=== PATIENT | female | born 2000 ===

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

== ENCOUNTER 2023-01-04 09:07 | Emergency (ER) | payer MEDICAID, SELFPAY ==
[2023-01-04 09:26] VITALS: BP 109/80; PULSE 78; RESP 14; TEMP 37.1; O2SAT 99; BMI 24.2
[2023-01-04] MEDS: methylPREDNISolone Sod Succ 125 MG/2 ML VIAL IVPUSH (10:41)
[2023-01-04] MEDS: diphenhydrAMINE HCL 50 MG/ML VIAL IVPUSH (10:41)
[2023-01-04] MEDS: Famotidine/PF 20 MG/2 ML VIAL IVPUSH (10:41)
--- NOTE | 2023-01-04 11:21 | ED_ITS ---
HPI - General Adult General Chief complaint: Skin/Abscess/Foreign Body Stated complaint: hives Time Seen by Provider: 01/04/23 09:51 Source: patient and RN notes reviewed Mode of arrival: ambulatory Limitations: no limitations History of Present Illness HPI narrative: This is a [age]-female presenting today with complaints of itchy rash on her entire body x 1 week. Patient states that she was seen at [facility] several days ago and was told that she had hives and was given a course of prednisone, however states that the hives have persisted and have not improved. She is unsure what has caused her to break out into hives. She states that she has been taking Benadryl 50mg at bedtime, last dose was last night. Denies any shortness of breath, wheezing, or trouble swallowing. MD complaint: Urticaria Onset (ago): week(s) Location: face, chest, back, abdomen, left, right, upper extremity and lower extremity Radiation: non-radiation Severity: moderate Quality: other (Itching) Pain Consistency: constant Relieving factors: none Exacerbating factors: none Associated symptoms: denies other symptoms Treatments prior to arrival: none Related Data Previous Rx's Medication Instructions Recorded ondansetron HCl 4 mg tablet 4 mg PO Q8H PRN nausea and 01/16/21 (Zofran) vomiting #10 tabs diphenhydramine HCl 25 mg capsule 50 mg PO Q6H PRN allergic reaction 01/04/23 (Benadryl) #30 caps famotidine 20 mg tablet (Pepcid AC) 20 mg PO BID #30 tabs 01/04/23 Allergies Allergy/AdvReac Type Severity Reaction Status Date / Time No Known Allergies Allergy Unverified 07/18/21 19:00 Review of Systems Review of Systems: Yes all other systems are reviewed and are negative PMFSH Past Medical History Medical History Migraine Seizures Social History Social History Advance Directives: No Advance Directives Information Provided: No Physical Exam ED Vital Signs: Vital Signs - 24 hr 01/04/23 09:26 Temperature 98.7 F Pulse Rate 78 Respiratory Rate 14 Blood Pressure 109/80 Pulse Oximetry 99 Oxygen Delivery Method Room Air BMI result Body Mass Index 24.2 Appearance: Alert. Oriented X3. No acute distress. HEENT: normal inspection, Airway patent. CVS: Normal heart rate and rhythm. Pulses normal. Respiratory: No respiratory distress. Lungs clear to auscultation bilaterally, no wheezes, rhonchi or rales. Skin: Wheals noted to forehead, bilateral upper and lower extremities. No surrounding erythema, edema, or drainage noted throughout. Extremities: Normal inspection, full ROM x4. Neuro: Oriented X 3. No motor deficit. No sensory deficit. Course Course Course Narrative: IV meds given, will reassess. airway patent Reevaluation(s) Reevaluation #1: Patient has some resolution of some of the hives, itching improved. Will plan to discharge on previously prescribed prednisone taper as well as increasing her Benadryl regimen and will add Pepcid. She will follow-up with her PCP for further evaluation, testing and allergy referral. Stable for discharge home. Medications Administered Discontinued Medications Generic Name Dose Route Start Last Admin Trade Name Freq PRN Reason Stop Dose Admin Diphenhydramine HCl 50 mg 01/04/23 10:01/04/23 10:41 Diphenhydramine Hcl 50 Mg/Ml Vial IVPUSH 01/04/23 10:27 50 mg ONCE ONE Administration Famotidine 20 mg 01/04/23 10:01/04/23 10:41 Famotidine/Pf 20 Mg/2 Ml Vial IVPUSH 01/04/23 10:27 20 mg ONCE ONE Administration Methylprednisolone Sodium Succinate 125 mg 01/04/23 10:01/04/23 10:41 Methylprednisolone Sod Succ 125 Mg/2 Ml Vial IVPUSH 01/04/23 10:27 125 mg ONCE ONE Administration Medical Decision Making Medical Decision Making [facility] Narrative: This is a 33-female presenting today with complaints of itchy rash on her entire body x 1 week. Patient was seen at [facility], given course of prednisone without relief, also taking benadryl 50mg QHS. VSS and patient is hemodynamically stable and airway is patent. Numerous wheals noted throughout patient's body. Medicated p atient with Pepcid 20 IV, benadryl 50mg IV, and solu-medrol 125mg IV. Differential Diagnosis Differential Diagnoses: The differential diagnosis associated with the presentation includes Urticaria, allergic dermatitis, contact dermatitis, allergic reaction, less likely any viral exanthem, tick-borne illness, cellulitis, or bacterial infection External Record Review External record reviewed: Outpatient record and Prior outpatient labs Prescription Management I considered prescription management with: Other (Antihistamines and H2 receptor radha) Critical Care Time Critical Care Time Critical Care Time: No Discharge Plan Discharge Clinical Impression: Acute idiopathic urticaria Patient Disposition: Home, Self-Care Instructions: Urticaria (ED) Additional Instructions: Continue the steroid taper as previously prescribed. Recommend increasing your Benadryl regimen to 2 tablets every 6-8 hours around the clock. Do this until symptoms are resolved. Also recommend taking the prescribed famotidine as directed for the next couple of weeks. Follow-up with your primary care doctor. If you develop new or worsening symptoms call 911 or come back to the ER for further evaluation. Prescriptions: New famotidine [Pepcid AC] 20 mg tablet 20 mg PO BID Qty: 30 0RF diphenhydramine HCl [Benadryl] 25 mg capsule 50 mg PO Q6H PRN (Reason: allergic reaction) Qty: 30 0RF No Action ondansetron HCl [Zofran] 4 mg tablet 4 mg PO Q8H PRN (Reason: nausea and vomiting) Qty: 10 0RF Referrals: Radha Denson [Primary Care Provider] - (Idiopathic urticaria)
== END 2023-01-04 12:52 | disposition home or self-care (01) ==
PROVIDERS: Emergency Provider Emergency Medicine; PCP Nurse Practitioner
DX: L50.1 Idiopathic urticaria (principal)
CPT/HCPCS: 96374; 96375; 99284; J1200; J2930

== ENCOUNTER 2023-03-21 01:51 | Emergency (ER) | payer MEDICAID, SELFPAY ==
[2023-03-21 01:58] VITALS: BP 128/81; BP 140/110; PULSE 103; PULSE 95; RESP 17; TEMP 37.1; O2SAT 100; O2SAT 99; BMI 23.4
[2023-03-21 02:13] LABS: MANUAL DIFF FLAG NO
[2023-03-21 02:15] LABS: Basophils Percent Auto 0.4 % (0-2); Eosinophils Absolute Auto 0.1 X10*3/uL (0.0-0.4); Eosinophils Percent Auto 1.2 % (0-4); Hematocrit 39.2 % (37.0-47.0); Hemoglobin 13.3 g/dl (12.0-16.0); Imm Gran Abs Auto 0.02 X10*3/uL (0.00-0.03); Imm Gran Pct Auto 0.2 % (0.0-0.4); Lymphocytes Absolute Auto 2.5 X10*3/uL (1.2-4.9); Lymphocytes Percent Auto 29.4 % (20-40); Mean Corpuscular HGB Conc 33.9 g/dl (31.0-35.0); Mean Corpuscular Hemoglobin 29.4 pg (27.0-33.0); Mean Corpuscular Volume 86.7 fL (80.0-98.0); Mean Platelet Volume 9.9 fL (9.4-12.3); Monocytes Absolute Auto 0.5 X10*3/uL (0.1-1.2); Monocytes Percent Auto 5.6 % (2-11); Neutrophils Absolute Auto 5.3 x10*3/uL (2.0-8.3); Neutrophils Percent Auto 63.2 % (45-73); Platelet Count 314 X10*3/uL (160-400); Red Blood Count 4.52 X10*6/uL (4.20-5.50); Red Cell Distribution Width 11.8 % (11.0-16.0); White Blood Count 8.4 X10*3/uL (4.8-10.8)
--- NOTE | 2023-03-21 02:45 | ED_ITS ---
HPI - Allergic Reaction General Chief complaint: Allergic Reaction Stated complaint: allergic reaction Time Seen by Provider: 03/21/23 02:35 Source: patient and EMS Mode of arrival: EMS Limitations: no limitations History of Present Illness HPI narrative: 23-year-old female been having for rash and itching since December (3 months ago) patient declined change in her daily routine, no new medication, no new food, no change of her detergent or soap. Patient felt for few sec and that she is not able to swallow her saliva tonight called the ambulance, patient in the emergency department able to speak in a full sentence, able to swallow her saliva. Related Data Previous Rx's Medication Instructions Recorded ondansetron HCl 4 mg tablet 4 mg PO Q8H PRN nausea and 01/16/21 (Zofran) vomiting #10 tabs diphenhydramine HCl 25 mg capsule 50 mg PO Q6H PRN allergic reaction 01/04/23 (Benadryl) #30 caps famotidine 20 mg tablet (Pepcid AC) 20 mg PO BID #30 tabs 01/04/23 prednisone 20 mg tablet 20 mg PO BID #10 tabs 03/21/23 Allergies Allergy/AdvReac Type Severity Reaction Status Date / Time No Known Allergies Allergy Unverified 07/18/21 19:00 Review of Systems Review of Systems: All other systems are reviewed and are negative Constitutional: Reports as per HPI and Reports no additional constitutional complaints Eyes: Reports as per HPI and Reports no additional eye complaints Reports system reviewed and no additional complaints, except as documented Cardiovascular: Reports as per HPI and Reports no additional cardiovascular complaints Respiratory: Reports as per HPI and Reports no additional respiratory complaints Gastrointestinal: Reports as per HPI and Reports no additional gastrointestinal complaints Genitourinary: Reports no additional female genitourinary complaints Musculoskeletal: Reports no additional musculoskeletal complaints Skin/Breast: Reports system reviewed and no additional complaints, except as docu Psychiatric: Reports no additional psychiatric complaints Endocrine: Reports no additional endocrine complaints Hematologic/Lymphatic: Reports no additional hematologic/lymphatic complaints Allergic/Immunologic: Reports no additional allergic/immunologic complaints Reports system reviewed and no additional complaints, except as documented and Reports Abnormal speech present PMFSH Past Medical History Medical History Migraine Seizures Social History Social History Alcohol intake: never Smoked in Last 30 Days: No Use of substances other than those prescribed or required for medical reasons: No Advance Directives: No Advance Directives Information Provided: No Patient : No Physical Exam ED Vital Signs: Vital Signs - 24 hr 03/21/23 01:58 03/21/23 03:39 03/21/23 04:03 Temperature 98.7 F 98.5 F Pulse Rate 95 73 80 Respiratory Rate 17 16 12 Blood Pressure 128/81 111/70 99/67 Pulse Oximetry 99 99 98 Oxygen Delivery Method Room Air Room Air Room Air BMI result Body Mass Index 23.4 Vital signs have been reviewed as appeared to be correct. Blood pressure normal. Heart rate normal. Respiration rate normal. Temperature normal. Oxygen saturation normal. Appearance: Alert. Oriented X3. No acute distress. Head: Normal external exam. Normocephalic. Atraumatic. No Carroll signs noted. No raccoon eyes noted Eyes: PERRLA. EOMI. Conjunctiva and sclera normal. Eyelids normal. ENT: TM's Normal. Pharynx normal. Uvula midline. Moist mucous membranes. No trismus noted. No drooling noted. No muffled voice noted. Patent airway, no stridor, no wheezing. Neck: Normal inspection. Neck supple. FROM. No adenopathy. Thyroid Normal. No meningeal signs. No neck mass noted. CVS: Normal heart rate and rhythm. Heart sound normal. No murmurs noted. Pulses normal throughout. Respiratory: No respiratory distress. Painless inspiration. Breath sounds normal. No wheezes/rales/rhonchi noted. Chest nontender. No accessory muscle usage noted or decreased air movement noted. Abdomen: Soft and nontender. Bowel sounds normal in all 4 quadrants. No distention noted. No organomegaly noted. No visible injury noted. Back: No CVA tenderness. Full range of motion noted. Skin: Diffuse hives on both arms and abdomen. Extremities: No lower extremity edema. Extremities exhibit normal range of motion. Extremities nontender. Neuro: Oriented X 3. Cranial nerve exam: II-XII are grossly intact No motor deficit. No sensory deficit. Reflexes normal. Course Course Course Narrative: Patient feels better after IV hydration, Solu-Medrol, and Pepcid. 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 Medications Administered Discontinued Medications Generic Name Dose Route Start Last Admin Trade Name Aman PRN Reason Stop Dose Admin Famotidine 20 mg 03/21/23 02:43 03/21/23 02:53 Famotidine/Pf 20 Mg/2 Ml Vial IVPUSH 03/21/23 02:44 20 mg ONCE ONE Administration Sodium Chloride 1,000 mls @ 999 mls/hr 03/21/23 02:43 03/21/23 02:53 Ns IV 03/21/23 03:43 999 mls/hr .Q1H1M ONE Administration Methylprednisolone Sodium Succinate 125 mg 03/21/23 02:43 03/21/23 02:53 Methylprednisolone Sod Succ 125 Mg/2 Ml Vial IVPUSH 03/21/23 02:44 125 mg ONCE ONE Administration Medical Decision Making Differential Diagnosis Differential Diagnoses: The differential diagnosis associated with the presentation includes (Allergic reaction, skin rash.) Lab Data 03/21/23 02:09 03/21/23 02:09 Labs: Lab Results 03/21/23 03/21/23 Range/Units 02:09 02:09 WBC 8.4 (4.8-10.8) X10*3/uL RBC 4.52 (4.20-5.50) X10*6/uL Hgb 13.3 (12.0-16.0) g/dl Hct 39.2 (37.0-47.0) % MCV 86.7 (80.0-98.0) fL MCH 29.4 (27.0-33.0) pg MCHC 33.9 (31.0-35.0) g/dl RDW 11.8 (11.0-16.0) % Plt Count 314 (160-400) X10*3/uL MPV 9.9 (9.4-12.3) fL Immature Gran % (Auto) 0.2 (0.0-0.4) % Neut % (Auto) 63.2 (45-73) % Lymph % (Auto) 29.4 (20-40) % [place] % (Auto) 5.6 (2-11) % Eos % (Auto) 1.2 (0-4) % Baso % (Auto) 0.4 (0-2) % Lymph # (Auto) 2.5 (1.2-4.9) X10*3/uL [place] # (Auto) 0.5 (0.1-1.2) X10*3/uL Eos # (Auto) 0.1 (0.0-0.4) X10*3/uL Baso # (Auto) 0.0 (0.0-0.2) X10*3/uL Abs Immat Gran (auto) 0.02 (0.00-0.03) X10*3/uL Absolute Neuts (auto) 5.3 (2.0-8.3) x10*3/uL Absolute Nucleated RBC 0.000 (0.0-0.012) X10*3/uL Nucleated RBC % (auto) 0.0 (0.0-0.2) /100WBC Sodium 140 (135-145) mmol/L Potassium 3.3 (3.3-5.1) mmol/L Chloride 108 (96-108) mmol/L Carbon Dioxide 23 (22-29) mmol/L Anion Gap 12 (12-20) BUN 8 L (9-16) mg/dL Creatinine 0.74 (0.5-1.4) mg/dL Estim Creat Clear Calc 86.4 Estimated GFR > 60 Random Glucose 118 H (60-115) mg/dL Calcium 9.0 (8.4-10.2) mg/dL Total Bilirubin 0.4 (0.0-1.0) mg/dL AST 13 (5-31) U/L ALT 9 (0-31) U/L Alkaline Phosphatase 72 (39-117) U/L Total Protein 7.7 (6.5-8.0) g/dL Albumin 4.5 (3.5-5.0) g/dL Discharge Plan Discharge Clinical Impression: Allergic reaction, Urticaria Patient Disposition: Home, Self-Care Instructions: General Allergic Reaction (ED), Allergy Testing (ED) Additional Instructions: Follow-up with your PCP and get immunology referral. Prescriptions: New prednisone 20 mg tablet 20 mg PO BID Qty: 10 0RF No Action ondansetron HCl [Zofran] 4 mg tablet 4 mg PO Q8H PRN (Reason: nausea and vomiting) Qty: 10 0RF famotidine [Pepcid AC] 20 mg tablet 20 mg PO BID Qty: 30 0RF diphenhydramine HCl [Benadryl] 25 mg capsule 50 mg PO Q6H PRN (Reason: allergic reaction) Qty: 30 0RF
--- OUTSIDE RECORDS SUMMARY | 2023-03-21 02:51 | XMS_ITS | Continuity of Care Document ---
Author Name Unknown Organization [facility] ter Address [address] [place] [id number]- Care Team Providers Care Facilities Flight Check Pilot Name Role Phone Brian BUSH, Alonso Gruber Primary Care Physician Encounter [facility] [place] Date(s): 12/31/19 - 12/31/[address] [address]- [facility] Discharge Disposition: A-D/C Home Attending Physician: Castro Herr MD Admitting Physician: Castro Herr MD Referring Physician: Castro Herr MD Allergies, Adverse Reactions, Alerts Substance Reaction Severity Status NKA Active Medications dicyclomine 10 mg oral capsule 1 capsule = 10 mg, By Mouth, 3 times a day, # 90 capsule, 3 Refills, Maintenance, 02/14/19 10:00:19EDT Start Date: 02/14/19 Stop Date: 06/14/19 Status: Ordered Dulcolax 5 mg oral enteric coated tablet 3 tablet = 15 mg, By Mouth, Once, after taking miralax for cleanout, # 3 tablet, 0 Refills, Soft Stop, 10/17/18 12:03:36 EST Start Date: 10/17/18 Status: Ordered Dulcolax 5 mg oral enteric coated tablet 3 tablet = 15 mg, By Mouth, Once, # 4 tablet, 0 Refills, Soft Stop, 12/12/19 16:51:00 EST, [facility]/pharmacy #[id number], 149.5, cm, 11/17/19 9:25:00 EST, Height, 53.3, kg, 11/17/19 9:25:00 EST, Dry Weight Start Date: 12/12/19 Status: Ordered Fioricet Tablet By Mouth, Every 4 hours, 0 Refills, Maintenance, 09/26/18 13:07:11 EST Start Date: 09/26/18 Status: Ordered Keppra 100 mg/mL oral solution 2.5 mL = 250 mg, By Mouth, 2 times a day, 0 Refills, Maintenance, 03/12/18 9:59:20 EDT Start Date: 03/12/18 Status: Ordered MiraLax oral powder for reconstitution See Instructions, mix 255 grams in 64 oz gatorade, drink over 4-6 hours for bowel cleanout, # 255 Gm, 1 Refills, Maintenance, 12/12/19 16:39:00 EST, [facility]/pharmacy #[id number], mix 255 grams in 64 oz gatorade, drink over 4-6 hours for bowel cleanout, 149.5, c... Start Date: 12/12/19 Status: Ordered Problem List Condition Effective Dates Status Health Status Inform ant Abdominal pain(Confirmed) Active Autism(Confirmed) Active Colitis(Confirmed) Active Diarrhea(Confirmed) Active Generalized seizure(Confirmed) Active Lack of appetite(Confirmed) Active Vital Signs Most recent to oldest [Reference Range]: 1 Oxygen Saturation [94-100 %] 100 % (12/31/19 7:08 AM) Pulse Rate [55-90 bpm] 73 bpm (12/31/19 7:08 AM) Blood Pressure [80-130/50-80 mm Hg] 108/ 69mm Hg (12/31/19 7:08 AM) Respiratory Rate [16-30 br/min] 18 br/mi n (12/31/19 7:08 AM) Temperature [96.8-100.4 DegF] 98.4 DegF (12/31/19 7:08 AM) Mode of Delivery (Oxygen) Room air (12/31/19 7:08 AM) Blood pressure sites Arm, right (12/31/19 7:08 AM) Temperature Route Oral (12/31/19 7:08 AM) Social History Social History Type Response Smoking Status Never smoker; Tobacc o user in household: Yes; Other: Mom; entered on: 03/12/18 Sex
--- OUTSIDE RECORDS SUMMARY | 2023-03-21 02:51 | XMS_ITS | Continuity of Care Document ---
Author Name Unknown Organization [facility] Address Unknown Care Team Providers Care Triple Air Valve Tester Name Role Phone Brian BUSH, Alonso Gruber Primary Care Physician [place] [facility] [place] 12/15[place]21 - 01/14/22 [facility] Attending Physician: Kimmie Edwards Admitting Physician: Kimmie Edwards Referring Physician: trKimmie Allergies, Adverse Reactions, Alerts No Known Allergies Medications dicyclomine 10 mg oral capsule 1 [...] 0 Refills, Soft Stop, 12/12/19 16:51:00 EST, [facility]/pharmacy #[id number], 149.5, cm, 11/17/19 9:25:00 EST, Height, [...] Gm, 1 Refills, Maintenance, 12/12/19 16:39:00 EST, [facility]/pharmacy #[id number], mix 255 grams in 64 oz gatorade, drink over 4-6 hours for bowel cleanout, 149.5, c... Start Date: 12/12/19 Status: Ordered Problem List Condition Effective Dates Status Health Status Inform ant Abdominal pain(Confirmed) Active Autism(Confirmed) Active Colitis(Confirmed) Active Diarrhea(Confirmed) Active Generalized seizure(Confirmed) Active Lack of appetite(Confirmed) Active Social History Social History Type Response Smoking Status Never smoker; Tobacc o user in household: Yes; Other: Mom; entered on: 03/12/18 Sex
--- OUTSIDE RECORDS SUMMARY | 2023-03-21 02:51 | XMS_ITS | Continuity of Care Document ---
Author Name Unknown Organization [facility] Address [address] [place] [address]- Care Team Providers Care Fractionation Supervisor Name Role Phone Alonso Torres MD Primary Care Physician Encounter [facility] [place] Date(s): 10/24/19 - 12/17/19 [facility] [address] [place] [id number]- [facility] Attending Physician: Prasanna Cosme MD Referring Physician: Alonso Torres MD Allergies, Adverse Reactions, Alerts Substance Reaction [...] 0 Refills, Soft Stop, 12/12/19 16:51:00 EST, [facility]/pharmacy #[id number], 149.5, cm, 11/17/19 9:25:00 EST, Height, [...] Gm, 1 Refills, Maintenance, 12/12/19 16:39:00 EST, [facility]/pharmacy #[id number], mix 255 grams in 64 oz [...]
--- OUTSIDE RECORDS SUMMARY | 2023-03-21 02:51 | XMS_ITS | Continuity of Care Document ---
Author Name Unknown Organization [facility] Address [address] [place] [address]- Care Team Providers Care Automobile Repossessor Name Role Phone Brian BUSH, Alonso Gruber Primary Care Physician Encounter [facility] [place] Date(s): 11/17/19 - 11/27/19 [facility] [address] [place] [address]- [facility] Attending Physician: Kimmie Edwards Admitting Physician: Kimmie Edwards Referring Physician: AdmtrKimmie Allergies, Adverse Reactions, Alerts Substance Reaction Severity [...] # 4 tablet, 0 Refills, Soft Stop, 03/12/18 12:49:35 EDT Start Date: 03/12/18 Status: Ordered Dulcolax 5 mg oral enteric coated tablet 3 tablet = 15 mg, By Mouth, Once, after taking miralax for cleanout, # 3 tablet, 0 Refills, Soft Stop, 10/17/18 12:03:36 EST Start Date: 10/17/18 Status: Ordered Fioricet Tablet By Mouth, Every [...] cleanout, # 255 Gm, 1 Refills, Maintenance, 10/17/18 12:03:30 EST, mix 255 grams in 64 oz gatorade, drink over 4-6 hours for bowel cleanout Start Date: 10/17/18 Status: Ordered Problem List Condition Effective Dates Status Health Status Inform ant Abdominal pain(Confirmed) Active Autism(Confirmed) Active Colitis(Confirmed) Active Diarrhea(Confirmed) Active Generalized seizure(Confirmed) Active Lack of appetite(Confirmed) Active Social History Social History Type Response Smoking Status Never smoker; Tobacc o user in household: Yes; Other: Mom; entered on: 03/12/18 Sex
--- OUTSIDE RECORDS SUMMARY | 2023-03-21 02:51 | XMS_ITS | Continuity of Care Document ---
Author Name Unknown Organization [facility] ter Address [address] [place] [id number]- Care Team Providers Care Molding Manager Name Role Phone Brian BSUH, Alonso Gruber Primary Care Physician Encounter [facility] [place] Date(s): 11/17/19 - 11/17/[address] [address]- [facility] Attending Physician: Carmelina BUSH, Prasanna Martin Allergies, Adverse Reactions, Alerts Substance Reaction Severity [...]
--- OUTSIDE RECORDS SUMMARY | 2023-03-21 02:51 | XMS_ITS | Continuity of Care Document ---
Author Name Unknown Organization [facility] Address [address] [place] [address]- Care Team Providers Care Wire Mesh Filter Fabricator Name Role Phone Alonso Torres MD Primary Care Physician Encounter [facility] [place] Date(s): 11/17/19 - 11/24/19 [facility] [address] [place] [id number]- [facility] Attending Physician: Carmleina BUSH, Prasanna Martin Referring Physician: Alonso Torres MD Allergies, Adverse [...] Generalized seizure(Confirmed) Active Lack of appetite(Confirmed) Active Procedures Procedure Date Related Diagnosis Body Site Status Celine fundoplication 2009 Com pleted Vital Signs Most recent to oldest [Reference Range]: 1 2 Height 149.5 cm (11/17/19 9:25 AM) 149.5 cm (11/17/19 9:25 AM) Weight 53.3 kg (11/17/19 9:25 AM) 53.3 kg (11/17/19 9:25 AM) Pulse Rate [55-90 bpm] 64 bpm (11/17/19 9:25 AM) Body Mass Index [18.5-24.99] 23.85 (11/17/19 9:25 AM) 23.85 (11/17/19 9:25 AM) Blood Pressure [80-130/50-80 mm Hg] 107/ 65mm Hg (11/17/19 9:25 AM) Dry Weight 53.3 kg (11/17/19 9:25 AM) Social History Social History Type Response Smoking Status Never smoker; Tobacc o user in household: Yes; Other: Mom; entered on: 03/12/18 Sex
--- OUTSIDE RECORDS SUMMARY | 2023-03-21 02:51 | XMS_ITS | Continuity of Care Document ---
Author Name Unknown Organization [facility] Address Unknown Care Team Providers Care Weatherseal Technician Name Role Phone Brian BUSH, Alonso Gruber Primary Care Physician Encounter [facility] [place] Date(s): 11/17/21 - 01/04/22 [facility] Attending Physician: Prasanna Cosme MD Admitting Physician: Prasanna Cosme MD Allergies, Adverse Reactions, Alerts No Known Allergies [...] 2 times a day, 0 Refills, Maintenance, 05/01/18 9:59:20 EDT Start Date: 03/12/18 Status: Ordered [...]
[2023-03-21] MEDS: 0.9 % Sodium Chloride 1,000 ML 999 ML IV (02:53)
[2023-03-21] MEDS: Famotidine/PF 20 MG/2 ML VIAL IVPUSH (02:53)
[2023-03-21] MEDS: methylPREDNISolone Sod Succ 125 MG/2 ML VIAL IVPUSH (02:53)
[2023-03-21 03:32] LABS: Alanine Aminotransferase 9 U/L (0-31); Albumin Level 4.5 g/dL (3.5-5.0); Alkaline Phosphatase 72 U/L (39-117); Anion Gap 12 (12-20); Aspartate Amino Transferase 13 U/L (5-31); Bilirubin Total 0.4 mg/dL (0.0-1.0); Blood Urea Nitrogen 8 mg/dL (9-16); Carbon Dioxide 23 mmol/L (22-29); Chloride 108 mmol/L (96-108); Creatinine Clr Calc Pharmacy 86.4; Estimated Glomerular Filt Rate > 60; Glucose Random 118 mg/dL (60-115); Potassium 3.3 mmol/L (3.3-5.1); Sodium 140 mmol/L (135-145); Total Protein 7.7 g/dL (6.5-8.0)
[2023-03-21 03:39] VITALS: BP 111/70; PULSE 73; RESP 16; O2SAT 99
[2023-03-21 04:03] VITALS: BP 99/67; PULSE 80; RESP 12; TEMP 36.9; O2SAT 98
== END 2023-03-21 04:46 | disposition home or self-care (01) ==
PROVIDERS: Emergency Provider Emergency Medicine
DX: R21 Rash and other nonspecific skin eruption (principal); T78.40XA Allergy, unspecified, initial encounter; X58.XXXA Exposure to other specified factors, initial encounter
CPT/HCPCS: 36415; 80053; 85025; 96374; 96375; 99284; J2930

== ENCOUNTER 2023-08-16 10:16 | Emergency (ER) | payer MEDICAID, SELFPAY ==
[2023-08-16 10:24] VITALS: BP 114/73; PULSE 109; RESP 16; TEMP 36.6; O2SAT 99; BMI 25.2
== END 2023-08-16 14:59 | disposition left against medical advice (07) ==
PROVIDERS: Emergency Provider Emergency Medicine
DX: T78.40XA Allergy, unspecified, initial encounter (principal); X58.XXXA Exposure to other specified factors, initial encounter
CPT/HCPCS: 99281